=== PATIENT | female | born 1980 | race Caucasian/White ===

== ENCOUNTER 2017-01-05 18:58 | Emergency (ER) | payer MEDICAID ==
[~2017-01-05] VITALS: Ht 175.3 cm; Wt 90.7 kg
[2017-01-05 19:11] VITALS: BP_SYST 149
[2017-01-05] MEDS ORDERED: DEXAMETHASONE SOD PHOSPHATE 10 MG/ML VIAL IM ONE (19:45)
[2017-01-05] MEDS ORDERED: KETOROLAC TROMETHAMINE 60 MG/2 ML VIAL IM ONE (19:45)
[2017-01-05] MEDS ORDERED: PENICILLIN G BENZATHINE 1.2 MMU/2 ML SYR IM ONE (19:45)
[2017-01-05 20:09] VITALS: BP_SYST 149
== END 2017-01-05 20:09 | disposition home or self-care (01) ==
LOC: SED 18:58
DX: J02.9 Acute pharyngitis, unspecified (principal); F17.210 Nicotine dependence, cigarettes, uncomplicated; R03.0 Elevated blood-pressure reading, without diagnosis of hypertension; Z71.6 Tobacco abuse counseling; Z90.710 Acquired absence of both cervix and uterus
CPT/HCPCS: 96372; 99284; J0561; J1100; J1885

== ENCOUNTER 2017-02-16 15:50 | Emergency (ER) | payer MEDICAID ==
[~2017-02-16] VITALS: Ht 175.3 cm; Wt 95.3 kg
[2017-02-16] MEDS ORDERED: NACL 0.9% 1,000 ML IV ONE (15:54)
[2017-02-16 16:00] VITALS: BP_SYST 148
[2017-02-16] MEDS ORDERED: KETOROLAC TROMETHAMINE 30 MG VIAL IVP ONE (16:00)
[2017-02-16] MEDS ORDERED: DIPH-TET-PERTUS Vaccine 0.5 ML VIAL (ADACEL) IM ONE (16:00)
[2017-02-16] MEDS ORDERED: LIDOCAINE 4% TOPICAL 50 ML BOTTLE MM ONE ×2 (16:00→16:15)
[2017-02-16] MEDS ORDERED: CEFAZOLIN 1 GM IVPB PREMIX 50 ML IV ONE (16:00)
[2017-02-16] MEDS ORDERED: BACITRACIN 1 GM OINT TP ONE (16:00)
[2017-02-16] MEDS ORDERED: ONDANSETRON HCL 4 MG/2 ML VIAL IVP ONE (16:00)
[2017-02-16] MEDS ORDERED: MORPHINE SULFATE 10 MG/ML VIAL IVP ONE (16:00)
[2017-02-16] MEDS ORDERED: ONDANSETRON HCL 4 MG/2 ML VIAL ONE (16:05)
[2017-02-16 16:13] LABS: EOSINOPHILS # (AUTO) 0.2 K/uL (0.0-0.4); EOSINOPHILS % (AUTO) 1.2 % (0.0-4.0); MEAN CORPUSCULAR HEMOGLOBIN 28 pg (27-31); MEAN CORPUSCULAR HGB CONC 33 % (32-36); MEAN CORPUSCULAR VOLUME 86 fL (79.0-98.0); RED CELL DISTRIBUTION WIDTH 13.9 % (9.0-15.0)
[2017-02-16] MEDS ORDERED: HYDROmorphone 1 MG INJ. 1 MG/ML AMPUL IVP ONE (16:15)
[2017-02-16 16:18] LABS: BASOPHILS # (AUTO) 0.4 K/uL (0.0-0.2); BASOPHILS % (AUTO) 2.3 % (0.0-2.0); HEMATOCRIT 45.9 % (36-48); HEMOGLOBIN 15.1 g/dL (12.0-16.0); LYMPHOCYTES # (AUTO) 2.7 K/uL (1.0-5.5); LYMPHOCYTES % (AUTO) 16.2 % (20.5-51.5); MONOCYTES # (AUTO) 0.9 K/uL (0.0-1.0); MONOCYTES % (AUTO) 5.4 % (1.7-9.3); NEUTROPHILS # (AUTO) 12.3 K/uL (1.8-7.7); NEUTROPHILS % (AUTO) 74.9 % (40.0-70.0); PLATELET COUNT (AUTO) 303 K/uL (130-430); RED BLOOD CELL COUNT(AUTO) 5.34 MIL/uL (4.2-6.2); WHITE BLOOD COUNT (AUTO) 16.5 K/uL (4.8-10.8)
[2017-02-16 16:30] LABS: CALCIUM 10.1 mg/dL (8.4-11.0); CREATININE 1.02 mg/dL (0.55-1.30); POTASSIUM 4.1 mmol/L (3.5-5.1)
[2017-02-16 18:06] VITALS: BP_SYST 151
== END 2017-02-16 18:04 | disposition home or self-care (01) ==
LOC: SED 15:50
DX: T21.22XA Burn of second degree of abdominal wall, initial encounter (principal); T24.212A Burn of second degree of left thigh, initial encounter; T24.211A Burn of second degree of right thigh, initial encounter; X12.XXXA Contact with other hot fluids, initial encounter; Y93.89 Activity, other specified; Y92.89 Other specified places as the place of occurrence of the external cause; Y99.8 Other external cause status
CPT/HCPCS: 16020; 36415; 80048; 83605; 84703; 85025; 87040; 90471; 90715; 96365; 96375; 99284; J0690; J1170; J1885; J2270; J2405; J7030

== ENCOUNTER 2017-08-26 23:35 | Emergency (ER) | payer MEDICAID ==
[~2017-08-26] VITALS: Ht 175.3 cm; Wt 87.1 kg
[2017-08-26 23:43] VITALS: BP_SYST 158
[2017-08-27] MEDS ORDERED: PENICILLIN G BENZATHINE 1.2 MMU/2 ML SYR IM ONE
[2017-08-27] MEDS ORDERED: IBUPROFEN 800 MG TABLET PO ONE
[2017-08-27] MEDS ORDERED: LIDOCAINE VISCOUS 2%, 15 ML UDC MM ONE
[2017-08-27 00:31] VITALS: BP_SYST 135
== END 2017-08-27 00:31 | disposition home or self-care (01) ==
LOC: SED 23:35
DX: J02.0 Streptococcal pharyngitis (principal)
CPT/HCPCS: 36415; 86403; 96372; 99283; J0561; J2001

== ENCOUNTER 2019-09-16 16:09 | Emergency (ER) | payer SELFPAY ==
[~2019-09-16] VITALS: Ht 175.3 cm; Wt 90.7 kg
[2019-09-16 16:20] VITALS: BP_SYST 165
--- NOTE | 2019-09-16 16:20 | NUR ---
Patient to ER bed 06 to gown for evaluation. Side rails up.
[2019-09-16] MEDS ORDERED: KETOROLAC TROMETHAMINE 30 MG VIAL IVP ONE (16:30)
[2019-09-16] MEDS ORDERED: PIPERACILLIN/TAZO 3.375 GM in NS 50 ML IV ONE (16:30)
[2019-09-16] MEDS ORDERED: DEXAMETHASONE SOD PHOSPHATE 10 MG/ML VIAL IVP ONE (16:30)
[2019-09-16] MEDS ORDERED: metroNIDAZOLE 500 MG TABLET PO ONE (16:30)
--- NOTE | 2019-09-16 16:35 | NUR ---
Pt. arrives to the ED ambulatory, A&Ox4 with c/o of throat and right ear pain. Patient is afebrile and denies other symptoms at this time. Pt. states that this pain happens annually around this time of year and states that she has a hx of recurrent tonsilitis. Upon inspection, throat to lateral right side is very tender and pt. reports pain upon palpation of throat. VSS. Will continue to monitor.
--- NOTE | 2019-09-16 16:37 | NUR ---
at bedside examining pt.
--- NOTE | 2019-09-16 16:38 | NUR ---
20G angiocath place to the left AC.
--- NOTE | 2019-09-16 16:40 | NUR ---
Note dwight in ED - 09/16/19 at 1711 by FELICITY Meds given as ordered. Blood cultures not ordered for for pt per Dr. Cruz.
--- NOTE | 2019-09-16 16:40 | NUR ---
Meds given as ordered as well as IV ABX. Blood cultures not ordered for pt. per MD instruction.
[2019-09-16] MEDS ORDERED: PIPERACILLIN/TAZOBACTAM 3.375 GM/VIAL (ZOSYN) IV ONE (16:52)
[2019-09-16 17:40] VITALS: BP_SYST 154
--- NOTE | 2019-09-16 17:40 | NUR ---
Patient given written and verbal discharge instructions and verbalizes understanding. ER MD discussed with patient the results and treatment provided. Patient in stable condition. ID arm band removed. IV catheter removed intact and dressing applied, no active bleeding. Rx of Flagyl, Augmentin, Motrin, and [place] given. Patient educated on pain management and to follow up with PMD. Pain Scale 3/10. Opportunity for questions provided and answered. Medication side effect fact sheet provided.
== END 2019-09-16 17:40 | disposition home or self-care (01) ==
LOC: SED 16:09
DX: J36 Peritonsillar abscess (principal)
CPT/HCPCS: 96365; 96375; 99284; J1100; J1885; J2543

== ENCOUNTER 2020-09-10 16:52 | Emergency (ER) | payer SELFPAY ==
[~2020-09-10] VITALS: Ht 175.3 cm; Wt 104.3 kg
[2020-09-10 16:57] VITALS: BP_SYST 159
[2020-09-10] MEDS ORDERED: AMOX-423 PO (17:20)
[2020-09-10] MEDS ORDERED: IBUP-1969 PO (17:20)
[2020-09-10] MEDS ORDERED: cefTRIAXone 1 GM in LIDOCAINE 1%, 20 ML MDV 2.1 ML IM ONE (17:30)
[2020-09-10 18:11] VITALS: BP_SYST 159
== END 2020-09-10 18:11 | disposition home or self-care (01) ==
LOC: SED 16:52
DX: J03.90 Acute tonsillitis, unspecified (principal)
CPT/HCPCS: 96372; 99283; J0696; J2001

== ENCOUNTER 2021-08-28 12:08 | Emergency (ER) | payer SELFPAY ==
[~2021-08-28] VITALS: Ht 175.3 cm; Wt 90.7 kg
[~2021-08-28 12:08] MED LIST: AMOX-423 PO; IBUP-1969 PO
[2021-08-28 12:17] VITALS: BP_SYST 164
[2021-08-28] MEDS ORDERED: LIDOCAINE VISCOUS 2%, 15 ML UDC MM ONE (12:30)
[2021-08-28] MEDS ORDERED: KETOROLAC TROMETHAMINE 30 MG VIAL IM ONE (12:30)
[2021-08-28] MEDS ORDERED: DEXAMETHASONE SOD PHOSPHATE 10 MG/ML VIAL IM ONE (12:30)
[2021-08-28] MEDS ORDERED: IBUP-1969 PO (14:12)
[2021-08-28] MEDS ORDERED: AUG875 PO (14:12)
[2021-08-28] MEDS ORDERED: LIDVIS100 MM (14:12)
[2021-08-28 14:52] VITALS: BP_SYST 154
== END 2021-08-28 14:52 | disposition home or self-care (01) ==
LOC: SED 12:08
DX: J03.90 Acute tonsillitis, unspecified (principal); I10 Essential (primary) hypertension; Z79.899 Other long term (current) drug therapy
CPT/HCPCS: 36415; 70490; 76376; 86403; 96372; 99284; J1100; J1885; J2001

== ENCOUNTER 2023-03-26 12:22 | Emergency (ER) | payer MEDICAID ==
[~2023-03-26] VITALS: Ht 175.3 cm; Wt 90.7 kg
[~2023-03-26 12:22] MED LIST changes: +AUG875 PO; +LIDVIS100 MM
[2023-03-26 12:30] VITALS: BP_SYST 159; PULSE 87; RESP 18; TEMP 97.7; O2SAT 98
[2023-03-26 15:26] LABS: STREPTOCOCCUS A SCREEN (RAPID) NEGATIVE (NEGATIVE)
[2023-03-26 16:07] LABS: COVID19 ANTIGEN SOFIA FIA NEGATIVE (NEGATIVE); INFLUENZA TYPE A NEGATIVE (NEGATIVE); INFLUENZA TYPE B NEGATIVE (NEGATIVE)
[2023-03-26] MEDS ORDERED: IBUP-1969 PO (16:12)
[2023-03-26] MEDS ORDERED: MENT7.6L2 PO (16:12)
[2023-03-26] MEDS ORDERED: DEXAMETHASONE SOD PHOSPHATE 10 MG/ML VIAL PO ONE (16:15)
[2023-03-26] MEDS ORDERED: IBUPROFEN 100 MG/5 ML UDC PO ONE (16:15)
[2023-03-26 16:56] VITALS: BP_SYST 141; PULSE 79; RESP 18; TEMP 97.7; O2SAT 98
== END 2023-03-26 16:55 | disposition home or self-care (01) ==
LOC: SED 12:22
DX: J03.90 Acute tonsillitis, unspecified (principal); I10 Essential (primary) hypertension; Z79.899 Other long term (current) drug therapy; Z20.822 Contact with and (suspected) exposure to COVID-19
CPT/HCPCS: 99283; 87426; 86403; 87081; 87804 ×2; J1100; 36415

== ENCOUNTER 2023-04-21 15:10 | Emergency (ER) | payer MEDICAID ==
[~2023-04-21] VITALS: Ht 175.3 cm; Wt 90.7 kg
[~2023-04-21 15:10] MED LIST changes: +MENT7.6L2 PO
[2023-04-21 15:22] VITALS: BP_SYST 164; PULSE 83; RESP 15; TEMP 97.8; O2SAT 100
[2023-04-21] MEDS ORDERED: FLOEARD LEFT EYE (15:39)
[2023-04-21] MEDS ORDERED: CLIN-142 PO (15:39)
[2023-04-21 16:40] VITALS: BP_SYST 164; PULSE 83; RESP 15; TEMP 97.8; O2SAT 100
== END 2023-04-21 16:40 | disposition home or self-care (01) ==
LOC: SED 15:10
DX: H00.012 Hordeolum externum right lower eyelid (principal); L73.2 Hidradenitis suppurativa; H57.89 Other specified disorders of eye and adnexa; I10 Essential (primary) hypertension; Z79.899 Other long term (current) drug therapy
CPT/HCPCS: 99283